=== PATIENT | female | born 1970 | race Caucasian/White ===

== ENCOUNTER → 2023-03-23 13:54 | Outpatient (REF) | payer OTHER, SELFPAY | LOC: WDC 13:54 | PROVIDERS: ATTENDING PHYSICIAN Family Medicine | DX: Z12.31 Encounter for screening mammogram for malignant neoplasm of breast (principal) | CPT/HCPCS: 77063; 77067 ==

== ENCOUNTER → 2023-05-19 12:46 | Outpatient (REF) | payer OTHER, SELFPAY | LOC: HWRAD 12:46 | PROVIDERS: ATTENDING PHYSICIAN Obstetrics & Gynecology; FAMILY PHYSICIAN Family Medicine | DX: R33.9 Retention of urine, unspecified (principal) | CPT/HCPCS: 76770 ==

== ENCOUNTER → 2023-06-07 12:37 | Outpatient (REF) | payer OTHER, SELFPAY | LOC: RAD 12:37 | PROVIDERS: ATTENDING PHYSICIAN Dentist General Practice | DX: K60.2 Anal fissure, unspecified (principal) | CPT/HCPCS: 74018 ==

== ENCOUNTER → 2023-06-23 07:45 | Outpatient (REF) | payer OTHER, SELFPAY | LOC: RAD 07:45 | PROVIDERS: ATTENDING PHYSICIAN Obstetrics & Gynecology; FAMILY PHYSICIAN Family Medicine | DX: N81.6 Rectocele (principal); K59.00 Constipation, unspecified; K46.9 Unspecified abdominal hernia without obstruction or gangrene | CPT/HCPCS: 74270 ==

== ENCOUNTER → 2023-07-07 06:25 | Day surgery (SDC) | payer OTHER, SELFPAY | LOC: GI 06:25 | PROVIDERS: ATTENDING PHYSICIAN Specialist | DX: K59.00 Constipation, unspecified (principal); K64.8 Other hemorrhoids | CPT/HCPCS: 45378 ==

== ENCOUNTER 2023-08-10 05:59 | Day surgery (SDC) | payer OTHER, SELFPAY ==
[2023-07-29 08:42] VITALS: BMI 25.0
[2023-07-29 10:46] LABS: Hematocrit 41.2 % (37.0-47.0); Hemoglobin 14.2 g/dL (12.0-16.0); Mean Corp Hgb Conc. 34.5 g/dL (33.0-37.0); Mean Corpuscular Hgb 30.3 pg (27.0-31.0); Mean Corpuscular Volume 87.8 fL (81.0-99.0); Platelet Count 270 10^3/uL (130-400); Red Blood Cell Count 4.69 10^6/uL (4.20-5.40); Red Cell Dist. Width 12.7 % (11.5-14.5); White Blood Cell Count 5.7 10^3/uL (4.8-10.8)
[2023-07-29 13:01] LABS: Blood Urea Nitrogen 26 mg/dl (7-17); Calcium 9.9 mg/dl (8.4-10.2); Carbon Dioxide 25 mmol/L (22-30); Chloride 102 mmol/L (98-107); Estimated Creatinine Clearance 75 ml/min; Glucose 90 mg/dl (70-99); Potassium 4.5 mmol/L (3.5-5.1); Sodium 140 mmol/L (135-145); eGFR > 60.00
[2023-08-10] VITALS (12 sets, daily range): BP systolic 104–122; BP diastolic 61–92; BMI 25.0
[2023-08-10] MEDS: TYLENOL 1000 MG PO (06:37)
[2023-08-10] MEDS: CELEBREX 200 MG PO (06:38)
[2023-08-10] MEDS: Pyridium 200 MG PO (06:39)
[2023-08-10] MEDS: NORMOSOL-R 1000 IV (06:45)
--- NOTE | 2023-08-10 09:15 | W.IMMPOSTOP ---
Surgical Immed Post Op Note
-
Primary Surgeon: Rob Culp MD
Assisting Surgeon: none
Pre-op Diagnosis: obstructive defecation, rectocele, anal spasm, chronic constipation
Post-op Diagnosis: same
Procedure Performed: botox injection of the internal anal sphincter, rectal biopsy x 2, bilateral pudendal nerve block; rectocele repair by Dr. Fountain (dictated separately)
Anesthesia Type: general with local
Specimen / Cultures: 5 cm rectal biopsy, 3 cm rectal biopsy
Estimated Blood Loss: 10 mL (for my portion)
Complications: None
Operative Findings: Hypertonic internal anal sphincter; injected 25 units of Botox in 4 quadrants; performed full-thickness posterior midline rectal biopsy at 5 cm proximal to the anal verge and 3 cm proximal to the anal verge; due to the narrow
anal canal and hypertonic internal anal sphincter, unable to obtain a rectal biopsy more proximal than 6 cm; Surgicel left in the anal canal, gauze applied for dressing and Lewis removed
--- NOTE | 2023-08-10 09:18 | OR.RPT ---
Operative Report
Operative Report
DATE OF OPERATION: 08/10/2023
SURGEON: Rob Culp MD
PREOPERATIVE DIAGNOSIS: Obstructive defecation, pelvic floor dyssynergia with anal spasm, chronic constipation, rectocele
POSTOPERATIVE DIAGNOSIS: Same
OPERATION: Exam under anesthesia, injection of botox into internal anal sphincter, full-thickness rectal biopsy x 2, bilateral pudendal nerve block; rectocele repair by Dr. Fountain
ASSISTANTS:
1. None
ANESTHESIA: General with local
ESTIMATED BLOOD LOSS: 10 mL (for my portion)
FINDINGS:
1. Dr. Fountain started the case by performing a transvaginal rectocele repair
2. Noted a narrow anal canal with hypertonic internal anal sphincter; injected 25 units of Botox in 4 quadrants of the internal anal sphincter
3. Performed full-thickness rectal biopsies at 5 cm and 3 cm proximal to the anal verge; defects closed with 2-0 Vicryl in a [id number] fashion
SPECIMENS:
1. 5 cm rectal biopsy
2. 3 cm rectal biopsy
DRAINS: None
COMPLICATIONS: None
INDICATIONS: The patient is a 53-year-old female who has a complex medical history complicated by lifelong chronic constipation and obstructed defecation. Anal manometry demonstrated type I pelvic floor dyssynergia with elevated sphincter tone as
well as an absent RAIR reflex. On defecography, there was a large rectocele. Therefore, the patient was recommended to have surgery with me and Dr. Fountain for the rectocele. I explained that Botox injection can help with elevated sphincter
tones, but there is a chance that it does not symptomatically make a difference. Additionally, due to her absent RAIR reflex, she has an indication for rectal biopsy to rule out Hirschsprung's disease. I explained that even if Hirschsprung's is
suspected, she has been improving with medical treatment. However, if medical management fails, it would be necessary to understand if Hirschsprung's is present. The operation was discussed with the patient in detail, including the risks, benefits
and alternatives. Risks described included, but not limited to bleeding, infection, urinary retention, damage to nearby structures such as the anal sphincter, fecal incontinence, recurrence, rectal perforation and anesthetic risks. The patient
understood and agreed to proceed. The consent was signed and placed in the chart. Dr. Fountain consented the patient separately for his portion of the procedure.
PROCEDURE IN DETAIL: The patient was taken to the operating room and placed on the operating table in supine position. Sequential compression devices were placed bilaterally. General anesthesia was then induced and the patient was intubated
without complication. The patient was then placed in lithotomy position with arms secured to the arm boards and pressure points padded. The perineum was then shaved, prepped and draped in a sterile fashion. A time-out was then performed verifying
the correct patient, procedure, operative site, positioning, and special equipment.
Dr. Fountain started the case with his portion, which involved a transvaginal rectocele repair and is dictated separately. Afterward, I started my portion. Local anesthesia used was a mixture of 60 mL of 0.25% Marcaine without epinephrine (with
epinephrine was on backorder) and 0.6 mg of dexamethasone. 40 mL was injected perianally at the beginning of the case. The anorectal exam was performed assessing all four quadrants of the anal canal using Hill-Cortez retractors in progressively
increasing size. She had a narrow anal canal without true anal stenosis. She had a significantly hypertonic internal anal sphincter. She had small, essentially physiologic, 3�column internal hemorrhoids that were not irritated or bleeding.
Therefore, I elected to leave these hemorrhoids alone as they were clearly not the cause of her symptoms.
I proceeded with chemodenervation of the internal sphincter muscle. 100 units of Botox was drawn up into 2 mL of saline. Using a 30-gauge needle, I injected a quarter of the Botox in the posterior midline, right lateral quadrant, anterior midline
and left lateral quadrant, respectively, taking care to avoid improper injection outside of the internal sphincter. No bleeding was noted from the injection sites.
I then performed full-thickness biopsies. Due to the narrow anal canal and elevated hypertonic internal sphincter, I was only able to adequately expose up to 6 cm proximal to the anal verge. Therefore, at about 5 cm, I grasped the posterior wall
of the rectum with an Allis clamp and placed a figure of eight 2-0 Vicryl stitch underneath. Using Metzenbaum scissors, I excised 1 cm of full-thickness rectal wall and passed this off the specimen. I tied down the 2-0 Vicryl to reapproximate the
rectal wall edges. There was some minor oozing and 2 extra 2-0 Vicryl's in a [id number] fashion were thrown. A tail was left long for easy identification in case of post-operative bleeding. Hemostasis was achieved. A second biopsy of the
rectal wall was performed at 3 cm in a similar fashion. Hemostasis was confirmed after tying down the figure-of-8 vicryl.
The anal canal was irrigated and hemostasis was checked. Hemostasis was confirmed. Surgicel was placed in the operative site prophylactically. At the end of the case, 10 mL of local were injected. 5 mL was injected bilaterally for a pudendal nerve
block.
At this point, the procedure was complete. All needle, sponge and instrument counts were correct. The patient tolerated the procedure well and was transferred to the recovery room in stable condition with gauze dressing in place secured with silk
tape. The Lewis was removed at the end of the case.
DICTATED BY: Rob Culp MD
[2023-08-10] MEDS: ZOFRAN 4 MG IV (09:27)
== END 2023-08-10 11:30 | disposition home or self-care (01) ==
LOC: SDS 05:59
PROVIDERS: ATTENDING PHYSICIAN Obstetrics & Gynecology; FAMILY PHYSICIAN Family Medicine; REFERRING PHYSICIAN Surgery
DX: N81.6 Rectocele (principal); K59.09 Other constipation; K59.4 Anal spasm; K59.02 Outlet dysfunction constipation
CPT/HCPCS: 57250; 46505; 45100; 88305; 36415; 80048; 85027; 86850; 86900; 86901; 88341; 88342; 93005; J0585

== ENCOUNTER 2024-02-28 06:27 | Day surgery (SDC) | payer OTHER, SELFPAY ==
[2024-02-28] VITALS (9 sets, daily range): BP systolic 103–118; BP diastolic 58–88; BMI 22.3
== END 2024-02-28 13:00 | disposition home or self-care (01) ==
LOC: SDS 06:27
PROVIDERS: ATTENDING PHYSICIAN Obstetrics & Gynecology
DX: N94.11 Superficial (introital) dyspareunia (principal); L90.5 Scar conditions and fibrosis of skin
CPT/HCPCS: 56810

== ENCOUNTER → 2024-03-27 18:02 | Outpatient (REF) | payer OTHER, SELFPAY | LOC: MRI 18:02 | PROVIDERS: ATTENDING PHYSICIAN Internal Medicine; FAMILY PHYSICIAN Family Medicine | DX: R15.9 Full incontinence of feces (principal) | CPT/HCPCS: 72197; A9575 ==

== ENCOUNTER 2024-04-24 06:20 | Day surgery (SDC) | payer OTHER, SELFPAY | END 2024-04-24 12:46 | disposition home or self-care (01) | LOC: GI 06:20 | PROVIDERS: ATTENDING PHYSICIAN Internal Medicine | DX: R10.13 Epigastric pain (principal); R11.0 Nausea; K31.A0 Gastric intestinal metaplasia, unspecified; K29.50 Unspecified chronic gastritis without bleeding | CPT/HCPCS: 43239; 88305; 88313; 88342 ==

== ENCOUNTER → 2024-04-27 12:51 | Outpatient (REF) | payer OTHER, SELFPAY | LOC: RAD 12:51 | PROVIDERS: ATTENDING PHYSICIAN Internal Medicine; FAMILY PHYSICIAN Family Medicine | DX: G62.9 Polyneuropathy, unspecified (principal); R63.4 Abnormal weight loss; R11.0 Nausea | CPT/HCPCS: 74177; Q9967 ==

== ENCOUNTER → 2024-08-14 17:11 | Outpatient (REF) | payer OTHER, SELFPAY | LOC: MRI 17:11 | PROVIDERS: ATTENDING PHYSICIAN Psychiatry & Neurology Neurology; FAMILY PHYSICIAN Family Medicine | DX: R20.0 Anesthesia of skin (principal); R41.89 Other symptoms and signs involving cognitive functions and awareness; H57.13 Ocular pain, bilateral; R52 Pain, unspecified | CPT/HCPCS: 70553; 72158; A9575 ==